=== PATIENT | female | born 1990 | race Caucasian/White ===

== ENCOUNTER 2019-05-04 21:35 | Emergency (ER) | payer SELFPAY ==
[~2019-05-04] VITALS: Ht 170.2 cm; Wt 68.2 kg
[2019-05-04 21:40] VITALS: TEMP 98.5
[2019-05-05] MEDS ORDERED: PREDNISONE20 MG PO (01:07)
[2019-05-05] MEDS ORDERED: ZITHROMAX 250M250 MG PO (01:07)
[2019-05-05 01:23] VITALS: BP 106/72; PULSE 85
== END 2019-05-05 01:23 | disposition home or self-care (01) ==
LOC: COL.ER 21:35
DX: J20.9 Acute bronchitis, unspecified (principal)
CPT/HCPCS: J7512

== ENCOUNTER → 2019-08-20 | Outpatient (CLI) | payer OTHER ==
[~2019-08-20] MED LIST: PREDNISONE20 MG PO; ZITHROMAX 250M250 MG PO
== END ==
LOC: COL.LAB 15:36
DX: Z01.89 Encounter for other specified special examinations (principal)

== ENCOUNTER 2023-05-13 18:07 | Emergency (ER) | payer SELFPAY ==
[~2023-05-13] VITALS: Ht 170.2 cm; Wt 67.7 kg
[2023-05-13 18:14] VITALS: TEMP 98.2
[2023-05-13 18:56] LABS: COLLECTION METHOD CLEAN CATCH
[2023-05-13 19:04] LABS: BASO % 0.2 % (0.0-2.0); EOS % 0.4 % (0.0-4.0); GRAN # 6.3 K/mm3 (1.4-6.5); GRAN % 73.7 % (42.2-75.2); HEMATOCRIT 38.7 % (37.0-47.0); HEMOGLOBIN 12.8 g/dl (12.5-16.0); LYMPH # 1.6 K/mm3 (1.2-3.4); LYMPH % 19.2 % (20.0-51.0); MEAN CELL VOLUME 85 fl (80.0-100.0); MEAN CORPUSCULAR HEMOGLOBIN 28 pg (27-31); MEAN CORPUSCULAR HGB CONC 33 g/dl (33.0-37.0); MEAN PLATELET VOLUME 10.3 fl (7.4-10.4); MONO # 0.5 K/mm3 (0.1-0.6); MONO % 6.3 % (1.7-9.3); PLATELET COUNT 216 K/mm3 (130-400); RED BLOOD COUNT 4.53 M/mm3 (4.10-5.30); REDCELL DISTRIBUTION WIDTH-CV 12.9 % (11.5-14.5)
[2023-05-13 19:47] LABS: PH 5.5 (5.0-8.5); URINE APPEARANCE Clear (CLEAR/HAZY); URINE BLOOD TRACE-INTACT (NEGATIVE); URINE COLOR Yellow (YELLOW); URINE GLUCOSE Negative (NEGATIVE); URINE KETONE 2+ (NEGATIVE); URINE NITRATE Negative (NEGATIVE); URINE PROTEIN(semi-quant) Negative (NEGATIVE); URINE UROBILINOGEN 0.2 E.U/dL (0.2-1.0)
[2023-05-13 19:51] LABS: ALBUMIN 4.4 gm/dL (3.5-5.0); BILIRUBIN,TOTAL 0.4 mg/dL (0.2-1.2); CALCIUM 9.8 mg/dL (8.4-10.2); CREATININE, serum 0.76 mg/dL (0.57-1.11); POTASSIUM 3.9 mmol/L (3.5-4.5); TOTAL PROTEIN 7.4 gm/dL (6.2-8.1)
[2023-05-13 20:25] LABS: SQUAMOUS EPITHELIAL 0-2 /hpf (0-10); URINE BACTERIA None Seen /hpf (NONE SEEN); URINE RBC 0-2 /hpf (0-2)
[2023-05-13 21:23] VITALS: BP 101/66; PULSE 80
== END 2023-05-13 21:23 | disposition home or self-care (01) ==
LOC: COL.ER 18:07
PROVIDERS: Nurse Practitioner Primary Care
DX: R10.13 Epigastric pain (principal)